=== PATIENT | female | born 1990 | race Caucasian/White ===

== ENCOUNTER 2022-09-14 02:52 | Outpatient (CLI) | payer OTHER, SELFPAY ==
[2022-09-14 10:16] LABS: Panorama Kit Sent via Fed Ex
[2022-09-14 10:23] LABS: Abs Immature Grans 0.04 10^3/uL (0.0-0.06); Absolute Basophil Count 0.02 10^3/uL (0.0-0.2); Absolute Eosinophil Count 0.02 10^3/uL (0.0-0.7); Absolute Monocyte Count 0.42 10^3/uL (0.1-0.8); Absolute Neutrophil Count 5.84 10^3/uL (1.2-6.7); Basophils % 0.3; Eosinophils % 0.3; HCT 38.7 % (36.0-46.0); HGB 13.1 g/dL (11.2-15.7); Immature Grans % 0.5; Lymphocytes % 19.1; MCH 29.9 pg (27.0-33.0); MCHC 33.9 % (32.0-36.0); MCV 88 fL (80-95); MPV 9.6 fL (8.0-11.0); Monocytes % 5.4; Neutrophils % 74.4; Platelet Count 191 10^3/uL (130-400); RBC 4.38 10^6/uL (3.93-5.22); RDW-SD 42.5 fL; WBC 7.84 10^3/uL (4.4-10.8)
[2022-09-15 15:24] LABS: Syphilis IgG w/Reflex Nonreactive (Nonreactive)
[2022-09-16 13:13] LABS: HIV-1/2 Ag & Ab Screen Negative (Negative)
[2022-09-17 09:00] LABS: Hepatitis B Surface Ag Negative (Negative)
[2022-09-17 09:16] LABS: Hepatitis C Ab w Rflx HCV PCR Negative (Negative)
[2022-09-17 11:58] LABS: Varicella IgG Antibody Positive (See Note)
[2022-09-17 12:02] LABS: Rubella IgG Ab (UVM) Positive (See Note)
== END 2022-09-14 02:53 | disposition home or self-care (01) ==
LOC: LBO 02:52
PROVIDERS: Visit Provider Advanced Practice Midwife
DX: Z34.91 Encounter for supervision of normal pregnancy, unspecified, first trimester (principal); Z3A.13 13 weeks gestation of pregnancy
CPT/HCPCS: 36415; 86787; 86803; 86850; 86900; 86901; 87340; 87389; 85025; 86762; 86780

== ENCOUNTER 2022-09-14 10:16 | Outpatient (REF) | payer OTHER, SELFPAY ==
--- NOTE | 2022-09-14 09:45 | PAPFT_PTH ---
PATIENT: Zeinab Brewer LOC: [facility] U#:[id number] AGE/SX: 31/F ROOM: RE09/14/[address]: Marguerite Lozada CNM : 1990 BED: DIS: 09/14/2022 SPEC #: [id number] RECD: 09/14/22 12:53 STATUS: SHIRA REQ #: [id number] BEAR: 09/14/22 09:[address]: Marguerite Lozada DEPT: [facility] Cytology RECD BY: Jo Aguila Tissues: 1 - CX/ENDOCX FOR PAP SMEARS Procedures: PAP THIN PREP/UVM Screening HPV DNA PROBE Comments: [id number] (CHLAMYDIA/GC)
[2022-09-14 12:19] LABS: *AMPHETAMINES SCREEN URINE Negative (Negative); *BARBITURATES SCREEN URINE Negative (Negative); *BENZODIAZEPINES SCREEN URINE Negative (Negative); Cannabinoids THC Negative (Negative); Cocaine Screen,Urine Negative (Negative); METHADONE URINE SCREEN Negative (Negative); OPIATES URINE SCREEN Negative (Negative)
[2022-09-14 12:26] LABS: Tricyclic Antidepressants Negative (Negative)
[2022-09-17 13:24] LABS: Chlamydia Result Negative (Negative); GC Result Negative (Negative)
[2022-09-21 11:14] LABS: Buprenorphine Negative ng/mL (Cutoff: 5.0); Norbuprenorphine Negative ng/mL (Cutoff: 2.5)
== END 2022-09-14 10:17 | disposition home or self-care (01) ==
LOC: LBN 10:16
PROVIDERS: Visit Provider Advanced Practice Midwife
DX: Z11.3 Encounter for screening for infections with a predominantly sexual mode of transmission; Z12.4 Encounter for screening for malignant neoplasm of cervix; Z3A.13 13 weeks gestation of pregnancy; Z34.91 Encounter for supervision of normal pregnancy, unspecified, first trimester; Z11.51 Encounter for screening for human papillomavirus (HPV)
CPT/HCPCS: 80307; 80348; 87491; 87591; 88142; 87086; 87624

== ENCOUNTER 2022-10-22 17:42 | Outpatient (REF) | payer OTHER, SELFPAY | END 2022-10-22 17:43 | disposition home or self-care (01) | LOC: LBN 17:42 | PROVIDERS: Visit Provider Advanced Practice Midwife | DX: O26.892 Other specified pregnancy related conditions, second trimester (principal); R30.0 Dysuria; Z3A.19 19 weeks gestation of pregnancy; R35.0 Frequency of micturition | CPT/HCPCS: 87086 ==

== ENCOUNTER 2022-12-27 03:37 | Outpatient (CLI) | payer OTHER, SELFPAY ==
[2022-12-27 10:14] LABS: HCT 35.2 % (36.0-46.0); HGB 11.9 g/dL (11.2-15.7); MCH 30.1 pg (27.0-33.0); MCHC 33.8 % (32.0-36.0); MCV 89 fL (80-95); MPV 9.7 fL (8.0-11.0); Platelet Count 172 10^3/uL (130-400); RBC 3.95 10^6/uL (3.93-5.22); RDW 12.4 % (11.7-14.6); RDW-SD 40.6 fL
[2022-12-27 10:23] LABS: Glucose,1 Hr (Glucola) 107 mg/dL (80-140)
== END 2022-12-27 03:38 | disposition home or self-care (01) ==
LOC: LBO 03:37
PROVIDERS: Visit Provider Advanced Practice Midwife
DX: Z34.90 Encounter for supervision of normal pregnancy, unspecified, unspecified trimester (principal)
CPT/HCPCS: 36415; 82950; 85027

== ENCOUNTER 2023-02-06 11:20 | Outpatient (REF) | payer OTHER, SELFPAY | END 2023-02-06 11:21 | disposition home or self-care (01) | LOC: LBN 11:20 | PROVIDERS: Visit Provider Obstetrics & Gynecology | DX: Z34.93 Encounter for supervision of normal pregnancy, unspecified, third trimester (principal); Z36.85 Encounter for antenatal screening for Streptococcus B; Z87.59 Personal history of other complications of pregnancy, childbirth and the puerperium; Z3A.34 34 weeks gestation of pregnancy | CPT/HCPCS: 87081 ==

== ENCOUNTER 2023-02-21 15:46 | Outpatient (REF) | payer OTHER, SELFPAY ==
[2023-02-21 19:48] LABS: *AMPHETAMINES SCREEN URINE Negative (Negative); *BARBITURATES SCREEN URINE Negative (Negative); *BENZODIAZEPINES SCREEN URINE Negative (Negative); Cannabinoids THC Negative (Negative); Cocaine Screen,Urine Negative (Negative); METHADONE URINE SCREEN Negative (Negative); OPIATES URINE SCREEN Negative (Negative)
[2023-02-21 19:50] LABS: Tricyclic Antidepressants Negative (Negative)
[2023-02-28 00:16] LABS: Buprenorphine Negative ng/mL (Cutoff: 5.0); Norbuprenorphine Negative ng/mL (Cutoff: 2.5)
== END 2023-02-21 15:47 | disposition home or self-care (01) ==
LOC: LBN 15:46
PROVIDERS: Visit Provider Advanced Practice Midwife
DX: Z34.93 Encounter for supervision of normal pregnancy, unspecified, third trimester (principal); Z3A.36 36 weeks gestation of pregnancy
CPT/HCPCS: 80307; 80348

== ENCOUNTER 2023-03-04 04:25 | Inpatient (IN) | payer OTHER, SELFPAY ==
[2023-03-04] VITALS (144 sets, daily range): BP systolic 89–123; BP diastolic 52–77; PULSE 58–112; RESP 16–18; TEMP 36.5–37.1; O2SAT 90–100; BMI 30.1
[2023-03-04 05:10] LABS: HCT 35.8 % (36.0-46.0); HGB 11.7 g/dL (11.2-15.7); MCH 28.1 pg (27.0-33.0); MCHC 32.7 % (32.0-36.0); MCV 86 fL (80-95); MPV 11.3 fL (8.0-11.0); Platelet Count 157 10^3/uL (130-400); RBC 4.17 10^6/uL (3.93-5.22); RDW 13.2 % (11.7-14.6); RDW-SD 40.5 fL; WBC 9.84 10^3/uL (4.4-10.8)
[2023-03-04] MEDS: Penicillin G POT. 5,000,000 UNITS in Normal Saline 100 ML 200 UNITS IVPB (05:20)
--- NOTE | 2023-03-04 05:27 | W.PM.OBHPL1 ---
Date of service: 03/04/23 Time of Service: 05:27 Assessment and Plan Assessment and plan (1) PROM (premature rupture of membranes): Status: Acute Assessment and plan: A: 32 yo @ 38 wks, latent phase SROM, clear fluid, GBS+ Low risk for SD and PPH Category 1 tracing P: Admit to BC, CBC, T&S Begin GBS prophylaxis Discussed options with pt Will Obs for 6 hrs, reassess @ 1000 Expectant management, intermittent FHT Anticipate (2) Group B Streptococcus carrier, +RV culture, currently : Status: Acute OB-HPI Labor/Delivery History of Present Illness Reason for Visit: Labor Chief Complaint: Suspected Rupture of Membranes (woke up to wet bed and clothes at 0345, fluids continuing to drain, no bleeding, no pain or contractions, no vomiting.) , Associated Signs and Symptoms of Suspected ROM: large and continuing gushes of clear fluids from vagina. TRIP Calculator Estimated Delivery Date Method Current WG Current Estimate 03/18/23 LMP (Certain) 38w 0d Other Estimates 03/19/23 Ultrasound #1 37w 6d History of Present Expected Delivery Route/Plan - CNM FOB/ - Claudio Brewer (third child together) BB, yes to circ Hopes to avoid epidural and long 2nd stage GBS positive - offer prophylaxis in labor Specific Issues/Plan 1. Desires cfDNA, (low risk x5 male) 2. Uncertain as to previous CF testing, will review records and discuss, declines CF/SMA at initial OB 3. Hx of PPROM x2, 32 wk growth US with cervical length 01/23 5.2cm 4. Hx of prolonged second stage, pushed 3-4 hours with epidural X2 would like other options this time 5. Both babies had to have phototherapy for jaundice 6. Pt and FOB are COVID vaccinated and boosted 7. Tdap given 01/23/23 Assessment: History Reviewed & Current Review of Systems Narrative: ROS completed and found to be noncontributory other than HPI PFSH All Active Problems (Updated 03/04/23 @ 05:38 by Sally Dotson) PROM (premature rupture of membranes) (Acute) Group B Streptococcus carrier, +RV culture, currently (Acute) History of premature rupture of membranes (PPROM) (Acute) delivered at 34 and 36 weeks after PPROM without labor, needed induction (Acute) Medical History (Updated 03/04/23 @ 05:38 by Sally Dotson) Dysuria during No pertinent past medical history Surgical History No pertinent past surgical history Family History Father Alcohol use disorder Depression Mother Cancer passed age 31 from renal cellular cancer Social History Smoking/Tobacco Use Status: Never Smoking risk assessment performed?: Yes Alcohol Intake: current Alcohol Intake frequency: a few times a month Drug use: Never Household members: family Number of Children: 2 Sexually active: Yes Do you think of yourself as: straight/heterosexual Current gender identity: female Do you feel safe at home: Yes Do you feel safe in your relationship?: Yes History History 5 Para 2 Hx # Term Pregnancies 0 Multiple births 0 Hx # Pregnancies 2 Ectopic pregnancies 0 AB induced 0 Hx Number of Living Children 2 AB spontaneous 2 Past Pregnancies Del. Date GA/Weeks # Preg Succ Route Wgt Sex Labor Lgth Anesthesia Location [facility] 10/10/17 7 No 05/02/18 34 No Yes vaginal 6 lb 8 oz Female [address] [place] [address] 06/09/18 6 No 06/26/19 36 No Yes vaginal 8 lb 4 oz Female [address] [place] [address] Delivery Date: 05/02/18 Last Updated by: Marguerite Naqvi CNM PPROM then induced, epidural, 3 hr pushing, 1 stitch Brittnee Delivery Date: 06/26/19 Last Updated by: Sally Dotson GBS+, pushed 4 hours but before urge, baby needed short resuscitation, Leidy Meds Allergies and Home Medications Allergies Allergy/AdvReac Type Severity Reaction Status Date / Time No Known Drug Allergies Allergy Verified 02/27/23 15:56 Home Medications Medication Instructions Recorded Confirmed Type prenat.vits,kwan,eki-vjih-tryem 1 tab PO DAILY 07/18/22 03/04/23 History inulin 2 gram chewable tablet See Rx Instructions PO DAILY 09/14/22 03/04/23 History (Fiber Gummies) pantoprazole 40 mg tablet,delayed 40 mg PO DAILY #30 tabs 12/05/22 03/04/23 Rx release (Protonix) Boostrix Tdap 2.5 Lf unit-8 mcg-5 0.5 ml IM ONCE #0.5 mL 01/23/23 03/04/23 Clinic Lf/0.5 mL intramuscular syringe (diphth,pertus(acell),tetanus) ferrous sulfate 325 mg (65 mg 325 mg PO DAILY #60 tabs 02/21/23 03/04/23 Rx iron) tablet Exam Physical Exam Vital signs: Temp Pulse BP 97.7 F 75 122/66 03/04/23 04:40 03/04/23 04:40 03/04/23 04:40 Vital Signs Reviewed: Yes Constitutional Constitutional: no acute distress, average body habitus and cooperative Detailed Labor and Delivery Exam Dilation: 1.5 Effacement (%): 40 station: -4 Cervix position: posterior Consistency: medium JOHNSTON Score(Cervical Ripeness Score): 3 Amniotic Membrane Status: Ruptured (since 344) Rupture Method: Spontaneous Pooling: Positive (gross SROM) Contraction Frequency(min): q2-4 Contraction Intensity: Mild Fetus A Heart Rate Baseline: 140 Monitor Accelerations: 15 X 15 Monitor Decelerations: None Variability: Moderate (6-25 BPM) Categories: Category I Est. Weight: 8 lb 2.514 oz Est. Weight: 3700 gms Date of Membrane Rupture: 03/04/23 Time of Membrane Rupture: 03:45 HEENT Exam HEENT Exam: Normal Neck Exam Neck Exam: Normal Chest/Brest/Axilla Exam Chest Exam: Normal Breast Exam Breast Exam: Not Done Respiratory Exam Respiratory Exam: Normal Cardiovascular Exam Cardiovascular Exam: Normal Abdominal Exam Abdominal Exam: Normal (Gravid and nontender) Rectal Exam Rectal Exam: Normal Exam Exam: Normal Extremities Exam Extremities Exam: Normal Back/Spine/Pelvis Exam Back Exam: Normal Pelvis Adequate: Yes (proven to 8'4) Skin Exam Skin Exam: Normal Neurological Exam Neurological Exam: Normal Psychiatric Exam Psychiatric Exam: Normal Results Results Group Beta Strep: Positive Blood Type: O+ Rubella Status: Immune Varicella Immunity: Immune Abnormal Lab Findings: Abnormal Labs 03/04/23 05:00 Hct 35.8 L MPV 11.3 H Risk Assessment Risk for Shoulder Dystocia Historical/Initial OB: NEGATIVE FOR: Pelvic Abnormality, Pre- BMI>30, Previous Shoulder Dystocia or Previous Macrosomia 36 Weeks: NEGATIVE FOR: Current Gestational DM, EFW>4500gms or Maternal Weight Gain>40lbs Increased Risk?: No Date/Initial: history of prolonged second stage X2 possibly due to epidural. GODFREY Delivery Plan @ 36wks: BRIONNA DONAHUE Risk for Pre-Eclampsia Date Initiated/Initials: not indicated Yes, if one or more: NEGATIVE FOR: Hx Pre-E/Gest HTN, Chronic HTN, Multiple Gestation, Pre-gestational DM, Renal Disease, Systemic Lupus or APA Syndrome Yes, if 2 or more: NEGATIVE FOR: Nulliparity, Age>= 35 yrs, >10yr btwn pregnancies, BMI>30, ethinicty, Mother/Sister w/ Pre-E or Previous IUGR Risk for Post- Hemorrhage Initial: NEGATIVE FOR: Multiple Gestation, Previous PPH, Known Clotting Deficiency, Grand Multiparity or Anticoagulation 36 Weeks: NEGATIVE FOR: Anemia, hgb<10, Low platelets(thrombocytopenia), Gestational HTN or Pre-E, Polyhydraminios or EFW>4500gms At Risk?: No Risks Reviewed Risks Reviewed Upon Admission: Yes
[2023-03-04] MEDS: Pantoprazole 40 MG TABCR PO (08:14)
[2023-03-04] MEDS: miSOPROStol 25 MCG TAB PO (08:46)
[2023-03-04] MEDS: Penicillin G POT. 3,000,000 UNITS in Normal Saline 50 ML 100 UNITS IVPB ×2 (09:25→13:26)
--- NOTE | 2023-03-04 10:04 | W.PM.OBNL1 ---
Date of service: 03/04/23 Time of Service: 09:40 Informed Consent Informed Consent: Induction of Labor (consent for 1 dose of misoprostel 25 mcg discussed with pt) and Risk,Benefits,Alternatives Discussed Pelvic Exam Dilation: 3 Effacement (%): 80 station: -3 Position: LOP Cervix Position: mid Contractions Contraction Frequency(min): irreg, q2-6 Intensity: Mild/Moderate Fetus A Monitor: External (US) Heart Rate Baseline: 140 Variability: Moderate (6-25 BPM) Categories: Category I Accelerations: 15 X 15 Decelerations: Prolonged (one episode of a 4 minute decel to 80 bpm, resolved with position change, no recurrance) Amniotic Membrane Status: Ruptured Assessment Note: Category 1 tracing, large amt's clear fluid continue to drain, upon pt sitting up @ 0900 FHT's sudddenly dropped to 70-80 bpm, IV started and fluid bolus initiated, pt moved to H&K and CNM summoned to room. FHT's toni back to baseline and stabilized there after a 4-5 minute period. SVE done to check for cord prolapse, none found, cvx changed to 3/80% and head well applied. POCUS ultrasound done to assess for possible occult cord prolapse, none visualized. Fetus in LOP position, Tracing returned to category 1. Assessment and Plan Assessment and plan (1) PROM (premature rupture of membranes): Status: Acute Assessment and plan: A: Unfavorable cvx with PROM in multipara Misoprostel 25 mcg PO given after R&B discussion and informed consent Isolated episode of prolonged decel with return to category 1 tracing Latent phase labor with progress to 3/80%, LOP at -3, fluid clear P: Continuous EFM for addition 1-2 hrs Return to expectant management if tracing remains category 1 Dr. Goins available for consultation as needed Objective Abnormal lab results 03/04/23 Range/Units 05:00 Hct 35.8 L (36.0-46.0) % MPV 11.3 H (8.0-11.0) fL Temp Pulse Resp BP Pulse Ox 98.7 F 82 18 111/69 98 03/04/23 09:37 03/04/23 10:03 03/04/23 07:25 03/04/23 08:49 03/04/23 09:53 Laboratory Results WBC 9.84 10^3/uL (4.4-10.8) 03/04/23 05:00 RBC 4.17 10^6/uL (3.93-5.22) 03/04/23 05:00 Hgb 11.7 g/dL (11.2-15.7) 03/04/23 05:00 Hct 35.8 % (36.0-46.0) L 03/04/23 05:00 MCV 86 fL (80-95) 03/04/23 05:00 MCH 28.1 pg (27.0-33.0) 03/04/23 05:00 MCHC 32.7 % (32.0-36.0) 03/04/23 05:00 RDW 13.2 % (11.7-14.6) 03/04/23 05:00 Plt Count 157 10^3/uL (130-400) 03/04/23 05:00 MPV 11.3 fL (8.0-11.0) H 03/04/23 05:00 Patient ABO/Rh O Positive 03/04/23 05:00 Antibody Screen NEGATIVE 03/04/23 05:00 Vital Signs Reviewed: Yes Objective Narrative Objective Narrative: See note in FHT assessment. No recurrence of decels in past hour Pt appears comfortable though reports slightly increased contractions Vital signs stable, tracing currently category 1 Subjective Interval history since last seen: Some contractions feel a bit stronger in lower abd. Results Hemoglobin/Hematocrit: Hgb 11.7 g/dL (11.2-15.7) 03/04/23 05:00 Hct 35.8 % (36.0-46.0) L 03/04/23 05:00 Abnormal Lab Findings: Abnormal Labs 03/04/23 05:00 Hct 35.8 L MPV 11.3 H
--- NOTE | 2023-03-04 12:43 | W.PM.OBNL1 ---
Date of service: 03/04/23 Time of Service: 12:43 Informed Consent Informed Consent: Augmentation of Labor and Risk,Benefits,Alternatives Discussed Pelvic Exam Dilation: 4 Effacement (%): 90 station: -3 Position: LOP Cervix Position: posterior Contractions Monitor Mode: Palpation Contraction Frequency(min): q3-5 Intensity: Mild Fetus A Monitor: Doppler Heart Rate Baseline: 130 FHR Rhythm: Regular Characteristics: Normal Amniotic Membrane Status: Ruptured Assessment and Plan Assessment and plan (1) PROM (premature rupture of membranes): Status: Acute Assessment and plan: A: PROM x9 hrs, latent phase FHT's reassuring, pt afebrile, mild contrx P: GBS prophylaxis doses given x2 Minimal cvx change since 929 Recommended pitocin augmentation Will revisit after pt ambulates and showers Subjective Patient Reports: No new Complaints
--- NOTE | 2023-03-04 14:04 | W.PM.OBNL1 ---
Date of service: 03/04/23 Time of Service: 14:04 Informed Consent Informed Consent: Regional Anesthesia and Risk,Benefits,Alternatives Discussed Pelvic Exam Dilation: 4.5 Effacement (%): 90 station: -3 Cervix Position: posterior Contractions Contraction Frequency(min): irreg, in groups of 3's Intensity: Moderate Fetus A Monitor: External (US) Heart Rate Baseline: 140 Variability: Moderate (6-25 BPM) Categories: Category I Accelerations: 15 X 15 Decelerations: Early Amniotic Membrane Status: Ruptured Assessment and Plan Assessment and plan (1) PROM (premature rupture of membranes): Status: Acute Assessment and plan: A: Need for pain management Pt requests epidural P: RN LPN CNA paged Consider pitocin augmentation after pt is comfortable Maternal position changes for rotation/descent Anticipate Objective Vital Signs Reviewed: Yes Objective Narrative Objective Narrative: Pt expressing anxiety about an epidural Is concerned it may become too late for one if she waits, Is already very uncomfortable with pressure she feels during contractions Slow progress through early labor, no descent and in LOP position Pt encouraged to speak with RN LPN CNA about her options Reassured her we will use positioning changes to encourage rotation/descent before active pushing Category 1 tracing with early decels noted Subjective Interval history since last seen: Requesting epidural, I can barely breath during the contractions, worried about having enough energy to push in 2nd stage if she has strong contractions for hours.
--- NOTE | 2023-03-04 14:07 | W.ANESPRE ---
General Info Date of Service Date Performed: 03/04/23 Height: 5 ft 3 in Weight: 77.111 kg Body Mass Index (BMI): 30.1 Meds Allergies and Home Medications Allergies Allergy/AdvReac Type Severity Reaction Status Date / Time No Known Drug Allergies Allergy Verified 02/27/23 15:56 Home Medication Medication Instructions Recorded prenat.vits,kwan,kwj-klpg-bqalh 1 tab PO DAILY 07/18/22 inulin 2 gram chewable tablet See Rx Instructions PO DAILY 09/14/22 (Fiber Gummies) pantoprazole 40 mg tablet,delayed 40 mg PO DAILY #30 tabs 12/05/22 release (Protonix) ferrous sulfate 325 mg (65 mg 325 mg PO DAILY #60 tabs 02/21/23 iron) tablet Current Visit Medications: Current Medications Generic Name Dose Route Start Last Admin Trade Name Freq PRN Reason Stop Dose Admin Penicillin G Potassium 3,000, 50 mls @ 100 mls/hr 03/04/23 08:45 03/04/23 13:26 000 units/ Sodium Chloride IVPB 100 mls/hr Q4H TODD Administration Sodium Chloride 500 mls @ 0 mls/hr 03/04/23 04:39 Saline 500ml Bag IV PRN PRN As Directed IV Miscellaneous Supplies 1 each 03/04/23 04:45 Iv Access IV DIRECTED TODD IV Miscellaneous Supplies 1 each 03/04/23 04:45 Iv Access IV DIRECTED TODD Pantoprazole Sodium 40 mg 03/04/23 08:30 03/04/23 08:14 Pantoprazole 40 Mg Tabcr PO 40 mg DAILY TODD Administration Sodium Chloride 0 ml 03/04/23 04:39 Normal Saline Flush 10 Ml Syr IVP PRN PRN PFSH Active Problems Active Problems: Problem Status Onset Code PROM (premature rupture of membranes) O42.90 Group B Streptococcus carrier, +RV culture, currently O99.820 History of premature rupture of membranes (PPROM) Z87.59 Z34.90 Medical History Medical History (Updated 03/04/23 @ 05:38 by Sally Dotson) Dysuria during No pertinent past medical history Surgical History Surgical History No pertinent past surgical history Tobacco Smoking/Tobacco Use Status: Never Alcohol Alcohol Intake: current Alcohol intake frequency: a few times a month Substance Use Substance use: Never Prental History History 5 Para 2 Hx # Term Pregnancies 0 Multiple births 0 Hx # Pregnancies 2 Ectopic pregnancies 0 AB induced 0 Hx Number of Living Children 2 AB spontaneous 2 Past Pregnancies Del. Date GA/Weeks # Preg Succ Route Wgt Sex Labor Lgth Anesthesia Location [facility] 10/10/17 7 No 05/02/18 34 No Yes vaginal 2948.35 g Female 18 [facility] 06/09/18 6 No 06/26/19 36 No Yes vaginal 3742.137 g Female [facility] Delivery Date: 05/02/18 Last Updated by: Marguerite Naqvi CNM PPROM then induced, epidural, 3 hr pushing, 1 stitch Brittnee Delivery Date: 06/26/19 Last Updated by: Sally Dotson GBS+, pushed 4 hours but before urge, baby needed short resuscitation, Leidy Vital Signs and Lab Results Vital Signs Most Recent Vital Signs in EMR: Most Recent Vital Signs Temp Pulse Resp BP Pulse Ox 37.1 C 89 18 113/77 100 03/04/23 13:47 03/04/23 13:47 03/04/23 13:47 03/04/23 13:47 03/04/23 10:44 Lab Results 03/04/23 05:00 Blood Type / Crossmatch: Patient ABO/Rh O Positive 03/04/23 Antibody Screen NEGATIVE 03/04/23 Complete Blood Count: White Blood Count 9.84 10^3/uL (4.4-10.8) 03/04/23 05:00 Red Blood Count 4.17 10^6/uL (3.93-5.22) 03/04/23 05:00 Hemoglobin 11.7 g/dL (11.2-15.7) 03/04/23 05:00 Hematocrit 35.8 % (36.0-46.0) L 03/04/23 05:00 Platelet Count 157 10^3/uL (130-400) 03/04/23 05:00 Complete Metabolic Panel: No Data to Display Liver Function Panel: No Data to Display Coagulation Panel: No Data to Display Cardiac Panel: No Data to Display Arterial Blood Gas: No Data to Display Venous Blood Gas: No Data to Display Pancreas Panel: No Data to Display Thyroid Panel: No Data to Display Infectious Disease: No Data to Display Blood Cultures: No Data to Display Toxicology Panel: Urine Amphetamines Screen Negative (Negative) 02/21/23 13:40 Urine Benzodiazepines Screen Negative (Negative) 02/21/23 13:40 Urine Barbiturates Screen Negative (Negative) 02/21/23 13:40 Urine Cocaine Screen Negative (Negative) 02/21/23 13:40 Urine Methadone Screen Negative (Negative) 02/21/23 13:40 Urine Opiates Screen Negative (Negative) 02/21/23 13:40 Ur Tricyclic Antidepressants Screen Negative (Negative) 02/21/23 13:40 Ur Tetrahydrocannabinol (THC) Scrn Negative (Negative) 02/21/23 13:40 Panel: No Data to Display Anesthesia Assessment and Plan Anesthesia History Personal History: No History of Anesthesia Complications Family History: No Family History of Anesthesia Complications Exercise Tolerance Exercise Tolerance: Metabolic Equivalents>4 Pertinent Negatives Pertinent Negatives: No Symptoms of GERD Cardiac & Pulmonary Exam Cardiac Exam: Normal S1/S2 Heart Sounds Pulmonary Exam: Clear Bilateral Breath Sounds Implantable Cardiac Device Does patient have a Pacemaker or an ICD?: No Airway Exam Known Difficult Airway: No Mallampati Class: 2 Mouth Opening: Normal (> 3cm) Thyromental Distance: Greater than 3 cm Neck Range of Motion: Full ROM Neck Circumference: Normal Teeth Condition: Normal Dentition ASA Classification ASA Score: ASA 2 Emergency Case?: No NPO Status NPO Status: NPO Clears >2 hours, Solids >8 hours Status Status: Confirmed Anesthesia Plan Resuscitation Status: Full Code Anesthesia Technique: Epidural Anesthesia Airway Planned: Natural Airway Pain Management: Surgeon and patient request nerve block Monitors Used: Standard Monitors
[2023-03-04] MEDS: FentaNYL/ROPIvacaine 2 mcg/ml and 0.1% 200 ML CADD Cassette EP (14:39)
--- NOTE | 2023-03-04 14:45 | W.ANESNEU ---
Epidural/Spinal Catheter Date Performed: 03/04/23 Procedure Start: 14:24 Procedure Stop: 14:42 Requesting Provider: Alex Frank Procedure Location: Obstetrics Reason Performed: Labor Epidural Standard Monitors Applied: Blood Pressure and SpO2 Patient Position: Sitting Sedation Given (Indicate Dose Given): No Sedation given Patient Mental Status: Awake Sterility: Hand Hygiene, Surgical Cap, Surgical Mask, Sterile Gloves, Sterile Drape/Sheet and Chlorhexidine Procedure Location: L3-L4 Interspace Epidural Needle: Tuohy 17 Guage Needle Length: 3.5 Inch Needle Approach: Midline Epidural Procedure: Skin Prepped, Sterile Drape Placed, 1% Lidocaine to skin and subcutaneous tissue with 25G needle, Tuohy Needle placed, KARTIK to Saline Used, Epidural Catheter Placed, Negative Heme, Negative CSF Flow and Tuohy Needle Removed Catheter Placed?: Catheter Placed Test Dose (Indicate Dose Given): 5ml 1.5% Lidocaine with 1:200K Epinephrine Given and Negative Test Dose Loss of Resistance Depth (cm): 9 Catheter depth at skin (cm): 14 Dressing: Sorbaview Dressing Placed, Mastisol Used and Dressing reinforced with Tape Epidural Provider Bolus (Indicate Dose Given): Total Ropivacaine 0.1% with Fentanyl 2mcg/ml Given from pump. (ml) Dose:: 10 ml Additives (Indicate Dose Given ): None Infusion Medication: Medication Infusion Began Medication Infusion: Ropivacaine 0.1% with Fentanyl 2mcg/ml Maintenance Infusion Rate (ml/hour): 10 PCEA Bolus Dose (ml): 5 Block Level: N/A Paresthesia: None Ultrasound: Not Used Number of Attempts (See previous attempts in note section): 2 Procedure Tolerated: No Complications and Patient tolerated well Procedure Outcome: Successful Performed By: Alex Frank
[2023-03-04] MEDS: Oxytocin/Normal Saline 30 UNIT/500 ML BAG 95 UNITS IV (16:35)
--- NOTE | 2023-03-04 17:15 | W.OBDELIVERY ---
Date of service: 03/04/23 Time of Service: 17:15 OB Labor/ Delivery Information Baby A Delivery Delivery Method: Spontaneaous Presentation: Cephalic Cephalic Position: Vertex Vertex Position: Left Occipital Anterior Breech Position: N/A Cord Description-Baby A: 3 Vessels Amniotic Fluid: Clear Estimated Blood Loss: 200 Delivery Outcome: Liveborn Transferred: Remains with Mother Note: Epidural anesthesia completed at 1430 and was effective, category 1 tracing continued with earlies and then question of lates developed while pt was supine, pt turned to LLP with return to category 1, SVE for 7 cm and vtx 0 station. Pt rested well for a period of time then turned to RLP, following position change there was question of a 1-2 minute decel versus signal loss. Pt turned to semifowlers and FHT continued as category 1, SVE performed and found to be fully dilated, vtx +2. Second stage huddle held, strong maternal efforts efficiently led to of a vigorous male infant over intact perineum, shoulders were transverse and delivered easily with maternal legs in Ana position, to mother's arms immediately. pitocin bolus started, cord clamped and cut by FOB at 7 minutes, Ross placenta intact with 3VC. Perineum and vagina inspected and are without laceration, strong family bonding observed, apgars 7/9, weight 3915 gms. Providers Nurse Battalion Fire Chief: Sally Dotson Nurse: Niru Pearce Nurse: Aby Griffin Labor/Delivery Information Steroids Given: None Reason Steroids Not Administered: N/A Group Beta Strep: Positive Antibiotics Administered: Yes Number of Doses of Antibiotics: 3 Rubella Status: Immune Blood Type: O+ Varicella Immunity: Immune Shoulder Dystocia: No Stages of Labor Onset of Labor Date: 03/04/23 Onset of Labor Time: 03:45 Complete Dilatation Date: 03/04/23 Complete Dilatation Time: 15:56 Labor - Stage 1 Duration: 12 hours and 11 minutes ROM Baby A: 03/04/23 ROM Baby A: 03:45 ROM Total Time- Baby A: [id number] Delivery Date-Baby A: 03/04/23 Delivery Time-Baby A: 16:31 Labor Stage 2 Duration: 35 minutes Placenta Delivery Date-Baby A: 03/04/23 Placenta Delivery Time-Baby A: 16:41 Labor-Stage 3 Duration: 10 minutes Total Length of Labor-Baby A: 12 hours and 46 minutes Placenta Status: Delivered Baby A Gender: Male Gestational Status: Early Term (37-38.6 wks) Gestational Age in Weeks/Days: 38 Weeks and 0 Days weight: 8 lb 10.098 oz Weight Comment: 3915 gms Score-1 Minute Interval(Baby A) Heart Rate-1 minute: 100 BPM or Greater Respiratory Effort- 1 minute: Slow Respiration/Weak Cry Muscle Tone-1 minute: Minimal Flexion/Extension Reflex Response-1 minute: Prompt Response Color-1 minute: Bluish Hands or Feet Total Score-1 minute: 7 Score-5 Minute Interval(Baby A) Heart Rate- 5 minute: 100 BPM or Greater Respiratory Effort-5 minute: Spontaneous/Strong Cry Muscle Tone-5 minute: Active Movement Reflex Response-5 minute: Prompt Response Color-5 minute: Bluish Hands or Feet Total Score- 5 minute: 9
[2023-03-04] MEDS: Ibuprofen 600 MG TAB PO (22:39)
[2023-03-05 04:50] VITALS: BP 109/69; PULSE 67; TEMP 36.7
--- NOTE | 2023-03-05 06:42 | W.PM.OBPNV1 ---
Date of service: 03/05/23 Time of Service: 06:42 Assessment and Plan Assessment and plan (1) Term delivered: Status: Acute Assessment and plan: A: Nml PPD#1 Happy with experience going well circumcision prior to d/c P: Pt requests discharge today Plans POP's as BCM until vasectomy is completed F/up at 2 & 6 wks Written instructions reviewed and given Subjective Subjective Patient comments: No complaints, Pain well controlled, Tolerating diet and Bowel Movement Patient's Mood: happy baby status: Doing well, Nursing well, Rooming in and Strong Bonding Observed [place] feeding status: Exclusively breast feeding Exam Physical Exam Vital signs: Temp Pulse Resp BP Pulse Ox 98.1 F 67 16 109/69 99 03/05/23 04:50 03/05/23 04:50 03/04/23 19:40 03/05/23 04:50 03/04/23 17:49 Vital Signs Reviewed: Yes Constitutional Constitutional: no acute distress, average body habitus and cooperative HEENT Exam HEENT Exam: Normal Neck Exam Neck Exam: Normal Breast Exam Bilateral: Breast Exam: Normal and Soft Nipple Exam: Normal and Uninjured Respiratory Exam Respiratory Exam: Normal Cardiovascular Exam Cardiovascular Exam: Normal Abdominal Exam Abdomen: Other (soft, nontender) Fundal Exam Fundus: Below Umbilicus and Firm Rectal Exam Rectal Exam: Normal Exam Perineum: Intact Extremities Exam Extremity Exam: Normal, Full ROM and Warm to Touch Back/Spine/Pelvis Exam Back Exam: Normal Skin Exam Skin Exam: Normal Neurological Exam Neurological Exam: Normal Psychiatric Exam Psychiatric Exam: Normal
[2023-03-05 07:58] VITALS: BP 114/69; PULSE 72; RESP 18; TEMP 36.8; O2SAT 98
[2023-03-05] MEDS: Acetaminophen 325 MG TAB 650 MG PO ×2 (09:01→17:34)
[2023-03-05] MEDS: Ibuprofen 600 MG TAB PO ×2 (09:01→17:35)
--- NOTE | 2023-03-05 10:53 | W.PM.OBDISCH ---
Date of service: 03/05/23 Time of Service: 10:53 DS: Diagnosis Discharge Diagnosis (1) Term delivered: Status: Acute Discharge Plan Disposition Patient Disposition: Home Condition: Good Discharge Details Reason For Visit: SROM Admit Date/Time: 03/04/23 04:25 Admit Provider: Sally Dotson Attending Provider: Sally Dotson Hospital Course Hospital Course: , nml PP course, discharge at 24 hrs Home Meds and New Rx's Prescriptions: No Action Fiber Gummies 2 gram tablet,chewable See Rx Instructions PO DAILY Rx Instructions: 2 gummies daily orally daily; ferrous sulfate 325 mg (65 mg iron) tablet 325 mg PO DAILY Qty: 60 0RF prenat.vits,kwan,ybn-dyaa-dxlci Tablet 1 tab PO DAILY pantoprazole [Protonix] 40 mg tablet,delayed release (DR/EC) 40 mg PO DAILY Qty: 30 6RF Boostrix Tdap 2.5-8-5 Lf-mcg-Lf/0.5mL syringe 0.5 ml IM ONCE Qty: 0.5 0RF Discharge Instructions Additional Instructions: Please keep your 2 & 6 wk appointments, call for any and all questions or concerns. Stand Alone Forms: BC Instructions, BC Post Vaginal Deliver Activity:: Activity as Tolerated Equipment/Supplies:: No Equipment Needed Diet:: Normal Diet OB:DS Summary Summary Vaginal Delivery Method: Spontaneaous Contraception Discussed Contraception Discussed: Yes Contraceptive Plan: Control Pill/Patch and Vasectomy, Gender-Baby A: Male weight: 8 lb 10.098 oz Status at Discharge Functional status at discharge: independent ambulation Overall status at discharge: patient is progressing back to baseline Mental Status: mental status grossly normal Speech and Movement: speech and movement normal and speech clear Mood: congruent mood Affect: normal affect Exam Physical Exam Vital signs: Temp Pulse Resp BP Pulse Ox 98.2 F 72 18 114/69 98 03/05/23 07:58 03/05/23 07:58 03/05/23 07:58 03/05/23 07:58 03/05/23 07:58 Constitutional Constitutional: no acute distress, average body habitus and cooperative HEENT Exam HEENT Exam: Normal Neck Exam Neck Exam: Normal Breast Exam Bilateral: Breast Exam: Normal and Soft Respiratory Exam Respiratory Exam: Normal Cardiovascular Exam Cardiovascular Exam: Normal Abdominal Exam Abdomen: Other (soft, nontender) Fundal Exam Fundus: Below Umbilicus and Firm Rectal Exam Rectal Exam: Normal Exam Perineum: Intact Extremities Exam Extremity Exam: Normal, Full ROM and Warm to Touch Back/Spine/Pelvis Exam Back Exam: Normal Skin Exam Skin Exam: Normal Neurological Exam Neurological Exam: Normal Psychiatric Exam Psychiatric Exam: Normal PFSH All Active Problems (Updated 03/05/23 @ 06:43 by Sally Dotson) Term delivered (Acute) Medical History (Updated 03/05/23 @ 06:43 by Sally Dotson) Dysuria during Group B Streptococcus carrier, +RV culture, currently History of premature rupture of membranes (PPROM) delivered at 34 and 36 weeks after PPROM without labor, needed induction No pertinent past medical history PROM (premature rupture of membranes) Surgical History No pertinent past surgical history Family History Father Alcohol use disorder Depression Mother Cancer passed age 31 from renal cellular cancer Social History Smoking/Tobacco Use Status: Never Smoking risk assessment performed?: Yes Alcohol Intake: current Alcohol Intake frequency: a few times a month Drug use: Never Household members: family Number of Children: 2 Sexually active: Yes Do you think of yourself as: straight/heterosexual Current gender identity: female Do you feel safe at home: Yes Do you feel safe in your relationship?: Yes History History 5 Para 2 Hx # Term Pregnancies 0 Multiple births 0 Hx # Pregnancies 2 Ectopic pregnancies 0 AB induced 0 Hx Number of Living Children 2 AB spontaneous 2 Past Pregnancies Del. Date GA/Weeks # Preg Succ Route Wgt Sex Labor Lgth Anesthesia Location Prov [facility] 10/10/17 7 No 05/02/18 34 No Yes vaginal 6 lb 8 oz Female 18 [facility] 06/09/18 6 No 06/26/19 36 No Yes vaginal 8 lb 4 oz Female [address] [place] [address] Delivery Date: 05/02/18 Last Updated by: Marguerite Naqvi CNM PPROM then induced, epidural, 3 hr pushing, 1 stitch Brittnee Delivery Date: 06/26/19 Last Updated by: Sally Dotson GBS+, pushed 4 hours but before urge, baby needed short resuscitation, Leidy DS: Data Vitals/I&O Vitals and I&O: Vital Signs Temperature 98.2 F 03/05/23 07:58 Temperature Source Oral 03/05/23 07:58 Pulse 72 03/05/23 07:58 Pulse Rhythm Regular 03/05/23 07:58 Respiratory Rate 18 03/05/23 07:58 Respiratory Depth Normal 03/04/23 19:53 Blood Pressure 114/69 03/05/23 07:58 Blood Pressure Mean 84 03/05/23 07:58 Pulse Oximetry 98 03/05/23 07:58 Comment patient denies feeling light headed or dizzy 03/04/23 07:25 Intake & Output 03/04/23 03/04/23 03/05/23 11:59 23:59 11:59 Intake Total 150 / 700 550 / 700 Output Total 250 / 2200 1950 / 2200 Balance -100 / -1500 -1400 / -1500 Weight 170 lb 170 lb Intake: IV 150 / 700 550 / 700 Output: Urine 250 / 2200 1950 / 2200 Other: Urine Color Yellow Yellow
--- NOTE | 2023-03-05 13:15 | W.ANESPOSTOP ---
Postoperative Evaluation Date, Time and Location Date Performed: 03/05/23 Time Performed: 13:15 Patient Location: Obstetrics Vital Signs Most Recent Imported Vital Signs: Most Recent Vital Signs Temp Pulse Resp BP Pulse Ox 36.8 C 72 18 114/69 98 03/05/23 07:58 03/05/23 07:58 03/05/23 07:58 03/05/23 07:58 03/05/23 07:58 Assessment Mental Status: Awake (Alert & Oriented to Patient Baseline) Airway and Respiratory Function: Patent airway with normal (patient baseline) respiratory exam Cardiovascular Function: Hemodynamically Stable Hydration Status: Adequately Hydrated Nausea & Vomiting: No Nausea or Vomiting Pain: Pt. Denies Any Pain Peripheral Nerve Block: Patient did not receive a nerve block
== END 2023-03-05 18:00 | disposition home or self-care (01) | DRG 807 ==
PROVIDERS: Admitting Provider Advanced Practice Midwife; Visit Provider Advanced Practice Midwife
DX: O42.92 Full-term premature rupture of membranes, unspecified as to length of time between rupture and onset of labor (principal); Z37.0 Single live birth; O99.824 Streptococcus B carrier state complicating childbirth; Z3A.38 38 weeks gestation of pregnancy
CPT/HCPCS: 36415; 85027; 86850; 86900; 86901; J2540; J3490

== ENCOUNTER 2023-08-07 11:08 | Outpatient (REF) | payer OTHER, SELFPAY | END 2023-08-07 11:09 | disposition home or self-care (01) | LOC: LBN 11:08 | PROVIDERS: Visit Provider Advanced Practice Midwife | DX: R30.0 Dysuria (principal); R82.89 Other abnormal findings on cytological and histological examination of urine | CPT/HCPCS: 87086 ==

== ENCOUNTER 2024-09-26 17:46 | Emergency (ER) | payer OTHER, SELFPAY ==
[2024-09-26 17:48] VITALS: BP 133/85; PULSE 96; RESP 18; TEMP 37; O2SAT 98
[2024-09-26 17:53] VITALS: BP 133/85; PULSE 96; RESP 18; TEMP 37; O2SAT 98
--- NOTE | 2024-09-26 18:00 | DI.RAD_ITS ---
Exam(s) XR CHEST 2V PA LATERAL EXAM: XR CHEST 2V PA LATERAL CLINICAL HISTORY: Eval PNA, 1 week cough/uri TECHNIQUE: 2D digital imaging was performed. Two views. COMPARISON: No exams were available for comparison FINDINGS: HEART: Normal size. Aorta: Not dilated. PULMONARY VASCULATURE: Normal. MEDIASTINUM: Unremarkable. LUNGS: Patchy left upper lobe infiltrate. The right lung appears clear. PLEURAL SPACE: No pleural effusion or pneumothorax. BONE:Unremarkable for age. SOFT TISSUES: Unremarkable. IMPRESSION: Left upper lobe pneumonia. DATA REPOSITORY: RADIATION DOSE DELIVERED:
[2024-09-26] MEDS: Ibuprofen 600 MG TAB PO (18:14)
[2024-09-26 18:37] LABS: COVID-19 PCR Negative (Negative); Influenza A PCR Negative (Negative); Influenza B PCR Negative (Negative); RSV PCR Negative (Negative)
[2024-09-26 18:50] LABS: Source Nasopharynx
--- NOTE | 2024-09-26 19:03 | ED.GENADUL_ITS ---
Discharge Plan Disposition Patient Disposition: Home Condition: Stable Discharge Details Clinical Impression: Pneumonia Primary Care Provider: None,None ED Provider: Saritha Parham Home Meds and New Rx's Prescriptions: New azithromycin 250 mg tablet 250 mg PO DAILY 4 Days Qty: 4 0RF Rx Instructions: start on day 2 of therapy (09/27/2024) No Action Fiber Gummies 2 gram tablet,chewable See Rx Instructions PO DAILY Rx Instructions: 2 gummies daily orally daily; cholecalciferol (vitamin D3) 125 mcg (5,000 unit) capsule 125 mcg PO DAILY Boostrix Tdap 2.5-8-5 Lf-mcg-Lf/0.5mL syringe 0.5 ml IM ONCE Qty: 0.5 0RF norgestimate-ethinyl estradiol [Pra-Nz-Tekmdjxj] 0.18/0.215/0.25 mg-25 mcg tablet 1 tab PO DAILY Qty: 84 1RF Discharge Instructions Instructions: Pneumonia, Adult (DC) Additional Instructions: You were seen in the emergency department today for evaluation of cough and general malaise and were found to have evidence of pneumonia. In our department you had a full physical examination performed, your COVID, flu, and RSV test was negative, and you had a chest x-ray. You received your first dose of antibiotic, and a prescription for the rest of the 5-day course was sent to your pharmacy. Please take all this medication until it is gone, even if you start to feel better. Please follow-up with your primary care provider in the next few days to discuss this visit and any symptoms that change, worsen, or persist. Thank you for allowing us to be part of your care. HPI General Mode of arrival: ambulatory . Date/Time Provider Initiated Documentation: 09/26/24 18:05 . Limitations to Documentation: no limitations . Information obtained by: patient, family and old records reviewed . HPI Narrative: HPI: This is a 33-year-old female patient, previously healthy, presenting for evaluation of 1 week of cough and subjective fevers. The patient reports that her children have been sick with RSV, she got sick as well but had improvement in her symptoms until yesterday, when they start to worsen again. She has noted a cough that is not productive of any significant mucus, has had a runny nose, and a subjective fever last night. She has been using bhfe-xnv-fdewboy DayQuil, and states that she is not experiencing any changes in her oral intake. Exam: Gen: Awake and alert, in no apparent distress HEENT: Non-icteric sclera, PERRL, posterior pharynx without erythema, exudate, or lesion Neck: Supple Lungs: No apparent respiratory distress, normal respiratory effort. Lung sounds clear and equal without wheezes, rhonchi, rales CV: Appears well perfused, heart with regular rate and rhythm, strong distal pulses, no murmurs auscultated Abdomen: Non-distended MSK: Moves 4 extremities without apparent limitation in ROM Skin: Visualized skin without rashes, cyanosis. Neuro: Normal Gait, no obvious focal deficits or facial asymmetry. Speaks in full, clear sentences. Psych: Appropriate for situation. MDM: This is a 33-year-old female patient presenting for evaluation of cough and subjective fever. Differential includes but is not limited to upper respiratory infection, pneumonia, bronchitis. No evidence on physical examination for reactive airway disease exacerbation, pulmonary edema, pleural effusion or pneumothorax. The patient is maintaining her oral intake and I have a low concern for metabolic or electrolyte derangement, dehydration or kidney injury. We will obtain a Fluvid swab and a chest x-ray. I provided the patient with a dose of ibuprofen for her body aches ED Course: Fluvid negative, chest x-ray independently interpreted by myself and does show a small consolidation in the right lower lobe concerning for pneumonia given her clinical history. First dose of azithromycin provided in the emergency department, scription flight remainder to 5-day course sent to her pharmacy. Referral for primary care was sent. At this time, the patient has had a full medical evaluation and is safe for discharge to home. They are hemodynamically stable, ambulatory, and tolerating PO. They are understanding of the follow-up plan and return precautions. They left our facility without incident. Saritha Parham MD Related Data Home Medications ?Medication ?Instructions ?Recorded ?Confirmed inulin 2 gram chewable tablet See Rx Instructions PO DAILY 09/14/22 09/26/24 (Fiber Gummies) cholecalciferol (vitamin D3) 125 125 mcg PO DAILY 04/15/23 09/26/24 mcg (5,000 unit) capsule norgestimate 0.18 mg/0.215 mg/0.25 1 tab PO DAILY #84 tabs 05/28/24 09/26/24 mg-ethinyl estradiol 25 mcg tablet (Nqz-Al-Hkvwwdzk) azithromycin 250 mg tablet 250 mg PO DAILY 4 days #4 tabs 09/26/24 Previous Rx's ?Medication ?Instructions ?Recorded norgestimate 0.18 mg/0.215 mg/0.25 1 tab PO DAILY #84 tabs 05/28/24 mg-ethinyl estradiol 25 mcg tablet (Qyb-Mk-Egfxlubg) azithromycin 250 mg tablet 250 mg PO DAILY 4 days #4 tabs 09/26/24 Allergies Allergy/AdvReac Type Severity Reaction Status Date / Time No Known Allergies Allergy Unverified 09/26/24 17:52 General Stated Complaint: RespSymp RIKA: 4 Course Vital Signs Vital signs: Vital Signs Temperature 37.0 C 09/26/24 17:48 Pulse 96 H 09/26/24 17:48 Respiratory Rate 18 09/26/24 17:48 Blood Pressure 133/85 09/26/24 17:48 Pulse Oximetry 98 09/26/24 17:48 Temperature 37.0 C 09/26/24 17:53 Temperature Source Oral 09/26/24 17:53 Pulse 96 H 09/26/24 17:53 Respiratory Rate 18 09/26/24 17:53 Respiratory Effort Normal, Non-Labored 09/26/24 18:15 Respiratory Depth Normal 09/26/24 18:15 Blood Pressure 133/85 09/26/24 17:53 Blood Pressure Position Sitting 09/26/24 17:53 Pulse Oximetry 98 09/26/24 17:53 Oxygen Delivery Method Room Air 09/26/24 17:53 Oxygen Flow Rate 0 09/26/24 17:53 Pain Level 4 09/26/24 18:14 Lab/Test Results Lab/Test Results: Laboratory Tests Range/Units 09/26/24 17:30 COVID-19 Source Nasopharynx SARS-CoV-2 (PCR) (Negative) Negative Influenza Type A (PCR) (Negative) Negative Influenza Type B (PCR) (Negative) Negative RSV (PCR) (Negative) Negative Medical Decision Making Quality:SDOH Health Related Social Needs: No Data to Display PFSH All Active Problems (Updated 09/26/24 @ 19:03 by Saritha Parham MD) Pneumonia (Acute) Care and examination of lactating mother (Acute) Term delivered (Acute) Medical History (Updated 09/26/24 @ 19:03 by Saritha Parham MD) Interstitial cystitis PROM (premature rupture of membranes) Group B Streptococcus carrier, +RV culture, currently Dysuria during History of premature rupture of membranes (PPROM) delivered at 34 and 36 weeks after PPROM without labor, needed induction No pertinent past medical history Surgical History No pertinent past surgical history Family History Father Alcohol use disorder Depression Mother Cancer passed age 31 from renal cellular cancer Social History Smoking/Tobacco Use Status: Never Smoking risk assessment performed?: Yes Alcohol Intake: current Alcohol Intake frequency: holidays/special occasions only Drug use: Never Substance use type: does not use Household members: family Number of Children: 2 Sexually active: Yes Do you think of yourself as: straight/heterosexual Current gender identity: female Do you feel safe at home: Yes Do you feel safe in your relationship?: Yes History History 5 Para 3 Hx # Term Pregnancies 1 Multiple births 0 Hx # Pregnancies 2 Ectopic pregnancies 0 AB induced 0 Hx Number of Living Children 3 AB spontaneous 2 Past Pregnancies Del. Date GA/Weeks # Preg Succ Route Wgt Sex Labor Lgth Anesth esia Location [facility] 10/10/17 7 No 05/02/18 34 No Yes vaginal 2948.35 g Female [address] [place] [address] 06/09/18 6 No 06/26/19 36 No Yes vaginal 3742.137 g Female [address] [place] [address] 03/04/23 38 No Yes vaginal 3915.[address] [facility] Jesse Caban CNM Delivery Date: 05/02/18 Last Updated by: Marguerite Naqvi CNM PPROM then induced, epidural, 3 hr pushing, 1 stitch Brittnee Delivery Date: 06/26/19 Last Updated by: Sally Dotson GBS+, pushed 4 hours but before urge, baby needed short resuscitation, Leidy Delivery Date: 03/04/23 Last Updated by: PATRICIA Ortega Ace; shoulder transverse, easily delivered with maternal Ana position
[2024-09-26] MEDS: Azithromycin 250 MG TAB 500 MG PO (19:14)
--- NOTE | 2024-09-26 20:17 | DI.VRAD_ITS ---
PROCEDURE INFORMATION: Exam: XR Chest Exam date and time: 09/26/2024 6:34 PM Age: 33 years old Clinical indication: Other: Eval pna, 1 week cough/uri TECHNIQUE: Imaging protocol: Radiologic exam of the chest. Views: 2 views. COMPARISON: No relevant prior studies available. FINDINGS: Lungs: Patchy airspace opacity noted in the left upper lobe. Left lower lobe is clear. The right lung is clear. No vascular congestion. Pleural spaces: Unremarkable. No pleural effusion. No pneumothorax. Heart/Mediastinum: Unremarkable. No cardiomegaly. Bones/joints: Unremarkable. IMPRESSION: Left upper lobe infiltrate. Pneumonia suspected. Dictated and Authenticated by: Gary Blackburn MD. Ordering:WOO Armstrong MD
== END 2024-09-26 19:15 | disposition home or self-care (01) ==
PROVIDERS: Emergency Provider Emergency Medicine
DX: J18.9 Pneumonia, unspecified organism (principal)
CPT/HCPCS: 87637; 99284; 71046